=== PATIENT | female | born 1940 ===

== ENCOUNTER 2021-08-16 10:45 | Inpatient (IN) | payer OTHER ==
[~2021-08-16] VITALS: Ht 170.2 cm; Wt 78.9 kg
[2021-08-17] MEDS ORDERED: SPIRIVA RESPIMAT4 G1 IH (10:33)
[2021-08-17] MEDS ORDERED: ZOCOR20 MG PO (10:33)
[2021-08-17] MEDS ORDERED: METFORMIN HCL500 M3 PO (10:34)
[2021-08-17] MEDS ORDERED: VALSARTAN-HCTZ1 EAC3 PO (10:34)
[2021-08-17] MEDS ORDERED: NORVASC5 MG PO (10:34)
[2021-08-21] MEDS ORDERED: VALSARTAN320 MG (16:25)
[2021-08-21] MEDS ORDERED: FLUMAZENIL0.1 MG/1 M (16:25)
== END 2021-08-24 09:42 | disposition home or self-care (01) | DRG 348 ==
LOC: O/R 08-21 08:45 → SURH 08-21 08:45
PROVIDERS: ADMIT Colon & Rectal Surgery; ATTEND Colon & Rectal Surgery
PROC: 0KXM0ZZ Transfer Perineum Muscle, Open Approach (ICD-10-PCS; 2021-08-21)
PROC: 0DJD8ZZ Inspection of Lower Intestinal Tract, Via Natural or Artificial Opening Endoscopic (ICD-10-PCS; 2021-08-21)
PROC: 0DBP7ZZ Excision of Rectum, Via Natural or Artificial Opening (ICD-10-PCS; principal; 2021-08-21 11:45)
DX: K62.3 Rectal prolapse (principal); K92.1 Melena; R15.9 Full incontinence of feces; Z20.822 Contact with and (suspected) exposure to COVID-19